=== PATIENT | male | born 1995 ===

== ENCOUNTER 2016-06-08 22:48 | Emergency (ER) | payer OTHER ==
[2016-06-09 00:53] LABS: HIV-1/2 RAPID SCREEN NEGATIVE (NEGATIVE)
[2016-06-11 14:46] LABS: HEP B CORE AB, IGM Non React (Non React); HEPATITIS B SURFACE AG Non React (Non React); HEPATITIS C ANTIBODY Non React (Non React)
== END 2016-06-09 00:26 | disposition home or self-care (01) ==
LOC: ED 22:48
DX: S61.032A Puncture wound without foreign body of left thumb without damage to nail, initial encounter (principal); W46.1XXA Contact with contaminated hypodermic needle, initial encounter; Y93.89 Activity, other specified; Y92.239 Unspecified place in hospital as the place of occurrence of the external cause; Y99.0 Civilian activity done for income or pay